=== PATIENT | female | born 1945 | race Caucasian/White ===

== ENCOUNTER 2018-11-13 08:38 | Inpatient (IN) | payer OTHER ==
[2018-11-01 09:21] LABS: HEMATOCRIT 41.3 % (37.0-47.0); HEMOGLOBIN 13.7 gm/dL (12.0-15.0); MCH 29.9 pg (26.0-34.0); MCHC 33.1 g/dL (28.0-37.0); MCV 90.4 fL (80.0-100.0); RBC 4.57 mil/uL (4.20-5.00); RDW 13.6 % (10.5-14.5); WBC 5.8 thou/uL (4.0-11.0)
[2018-11-01 09:22] LABS: URINE BILIRUBIN NEGATIVE (Negative); URINE BLOOD NEGATIVE (Negative); URINE CLARITY CLEAR; URINE COLOR YELLOW; URINE GLUCOSE-RANDOM* NEGATIVE (Negative); URINE KETONES NEGATIVE (Negative); URINE LEUKOCYTES-REFLEX NEGATIVE (Negative); URINE NITRITE-REFLEX NEGATIVE (Negative); URINE PROTEIN (DIPSTICK) NEGATIVE (Negative); URINE UROBILINOGEN 0.2 E.U./dl (0.2-1.0)
[2018-11-01 09:28] LABS: ALBUMIN 4.1 g/dL (3.4-5.0); CALCIUM 10.6 mg/dL (8.5-10.1); CREATININE 0.9 mg/dL (0.6-1.0); POTASSIUM 4.7 mmol/L (3.5-5.1)
--- NOTE | 2018-11-01 16:31 | EKG ---
[address] [address] ELECTROCARDIOGRAM REPORT Name: JOSE ELLISON Room #: [facility]#: [id number] Admission: Attend Phys: Dieudonne Wolfe MD Discharge: Date of : 49 Report #: [id number] THIS REPORT FOR: //name// [facility] Test Date: 2018-11-01 Test Time: 09:19:31 Pat Name: JOSE ELLISON Department: Room: Gender: F Global Sales Manager: christian : 1945 Requested By: Dieudonne Wolfe Order Number: [id number] MD: Figueroa Hathaway Measurements Intervals Kennedy Rate: 77 P: 71 MN: 167 QRS: -7 QRSD: 99 T: 33 QT: 378 QTc: 428 Interpretive Statements Sinus rhythm Baseline wander in lead(s) I,II,aVR,V4 No previous ECG available for comparison Electronically Signed On 11-01-2018 16:31:31 CDT by Figueroa Hathaway [email or web address] <ELECTRONICALLY SIGNED> By: Figueroa Hathaway MD 11/01/18 1631 8 8 Figueroa Hathaway MD /ROMAINE
[~2018-11-13] VITALS: Ht 165.1 cm; Wt 87.1 kg
[2018-11-13 00:15] VITALS: BP 135/69
[~2018-11-13 08:38] MED LIST: GABAPENTIN 100100 MG PO; MOBIC15 MG PO; PRAVACHOL40 MG PO; PRINIVIL20 M1 PO; TYLENOL PM EX-1 EACH PO; UNICOMPLEX M TA1 TA1 PO
[2018-11-13 11:59] VITALS: BP 151/85
[2018-11-13 19:35] VITALS: BP 135/69
[2018-11-13 20:00] VITALS: BP 133/60
[2018-11-13 20:15] VITALS: BP 133/60
[2018-11-14] VITALS (8 sets, daily range): BP systolic 96–121; BP diastolic 53–62
--- NOTE | 2018-11-14 04:04 | NUR ---
patient aox4 makes needs known. patient has a dressing on right knee, dressing c/d/i. patient has a polar care on. patient has a linda dressing is intact. pain controlled this shift. patient has alida hose and scd on. patient uses a bed side commode. patient in bed asleep at this time breathing regular and unlaboured.
[2018-11-14 05:37] LABS: HEMATOCRIT 37.2 % (37.0-47.0); HEMOGLOBIN 12.2 gm/dL (12.0-15.0); MCHC 32.7 g/dL (28.0-37.0); MCV 91.8 fL (80.0-100.0); RBC 4.05 mil/uL (4.20-5.00); RDW 13.4 % (10.5-14.5); WBC 9.2 thou/uL (4.0-11.0)
--- NOTE | 2018-11-14 14:29 | NUR ---
Cashier Or Checker Stock Clerk faxed referral to [facility], the patient should be ready to discharge on . Dp let [facility]Graciela know.
--- NOTE | 2018-11-14 17:38 | NUR ---
PT A&OX, VSS, PAIN IN RIGHT KNEE. PATIENT ABLE TO BEAR WEIGHT AND PIVOT TO BEDSIDE COMMODE. PAIN MANAGED WITH MEDICATION. PATIENT TOLERATED PHYSICAL THERAPY TODAY. PATIENT DID HAVE NAUSEA THIS MORNING APPROX 0730, ZOFRAN GIVEN AND SUCCESSFUL. NO COMPLAINTS OF NAUSEA AT THIS TIME. CHARLI DRESSING C/D/I. LIBRADO MATIAS, SCDS, AND POLAR PACK IN PLACE. RIGHT LEG WARM TO TOUCH, COLOR APPROPRIATE, SENSATION FELT. WILL CONTINUE TO MONITOR.
--- NOTE | 2018-11-15 01:52 | NUR ---
PATIENT AOX4 MAKES NEEDS KNOWN.PATIENT IS ABLE TO PIVOT FROM THE BED TO THE COMMODE WITH NO PAIN. NEURO CHECKS DONE EVERY 4 HOURS. PAIN CONTROLLED THIS SHIFT. SCD ON BLE. CHARLI DRESSING ON RIGHT KNEE IS C/D/I. ROSALVA WRAP ON RIGHT KNEE IS C/D/I. POLAR PACK ON RIGHT KNEE IS ON AND WORKING. FALL PRECAUTION IN PLACE. PATIENT IN BED ASLEEP AT THIS TIME BREATHING REGULAR AND UNLABOURED.
[2018-11-15 06:17] LABS: HEMATOCRIT 36.5 % (37.0-47.0); HEMOGLOBIN 11.8 gm/dL (12.0-15.0); MCH 29.7 pg (26.0-34.0); MCHC 32.4 g/dL (28.0-37.0); MCV 91.6 fL (80.0-100.0); RBC 3.99 mil/uL (4.20-5.00); RDW 13.9 % (10.5-14.5); WBC 6.6 thou/uL (4.0-11.0)
[2018-11-15 07:40] VITALS: BP 126/66
--- NOTE | 2018-11-15 10:07 | PATH ---
[facility] [address] [address] PATHOLOGY RPT PROCEDURE Name: JOSE ELLISON Room #: 455-P ADM IN M.R.#: [id number] Admission: 11/13/18 Date of : 49 Discharge: Report #: [id number] Path Case #: [id number] [facility] Accession Number: [id number] . 01 Material submitted: . knee - RIGHT KNEE TISSUE, FS. Modifiers: right . 02 Frozen section diagnosis: . FROZEN SECTION DIAGNOSIS (Anila Cooney MD) . FSA1, Synovium, right knee tissue, biopsy: - Reactive and reparative changes. - No increase in acute inflammation (none greater than 5/hpf). . These findings are discussed with Dr. Dieudonne Wolfe in OR-5 at [facility] and a written report is placed in the patient's chart. . Frozen section performed at [facility], [address] [place] [address]. . . GROSS DESCRIPTION: Specimen is received fresh from the OR labeled with the patient's name, "right knee tissue", consists of soft to firm fragments of tissue measuring an aggregate of 3 x 2 x 1 cm. Press Operator Carbon Blocks portions of the shiny smooth surface are submitted for frozen section as FSA1, the frozen section remnant is submitted for permanent sections as A1. The unfrozen portion of the tissue is submitted in entirety in A2 and A3. (IUV:odilon; 11/13/2018) IZV/MBR . 02 Diagnosis: Synovium, right knee tissue, biopsy: - Foreign body-type polarizable material associated with giant cell reaction as well as reparative changes. - Negative for increase in acute inflammation/neutrophils per high power field. (IUV:component design engineer; 11/14/2018) MBR 11/14/2018 1340 Local . 02 Electronically signed: . Anila Cooney MD, Pathologist NPI- [id number] . 03 Gross description: . PLEASE SEE FROZEN SECTION GROSS DESCRIPTION. [address] [place] [address] PATHOLOGY RPT PROCEDURE Name: JOSE ELLISON Room #: 455-P ADM IN M.R.#: [id number] Admission: 11/13/18 Date of : 49 Discharge: Report #: [id number] Path Case #: [id number] . /MBR 11/14/2018 0908 Local . 02 Pathologist provided ICD-10: Z03.89 . 02 CPT . 021766, [id number] Specimen Comment: A courtesy copy of this report has been sent to Specimen Comment: [phone], . Specimen Comment: Report sent to / DR GUTIERREZ Specimen Comment: Report sent to Performed at: [address] [place] [id number] MD Mark Osorio MD Phone: [phone] Performed at: [address] [id number] MD Anila Cooney MD Phone: [phone] Performed at: [address] [facility], [place], [place] [id number] MD Mark Osorio MD Phone: [phone]
[2018-11-15] MEDS ORDERED: ASPIR 8181 MG PO (13:16)
[2018-11-15] MEDS ORDERED: NEURONTIN 300300 M1 PO (13:16)
--- NOTE | 2018-11-15 13:36 | O ---
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 PROCEDURE: Revision of right total knee arthroplasty, all components. SURGEON: Dieudonne Wolfe MD. ATTORNEY: Kia Ramirez PA-C. ANESTHESIA: LMA with an adductor canal block. IMPLANTS: [employer]hew size 5 LEGION revision Oxinium femoral component with a size 6-mm offset fire dispatcher and a 13 x 160 stem, a size 3 LEGION revision tibial baseplate with 5 mm medial and lateral abilio wedges, a 4-mm offset fire dispatcher and a 13 x 160 stem, a size 32 patella and a size 15 constrained polyethylene liner. TOURNIQUET TIME: 100 minutes. ESTIMATED BLOOD LOSS: 50 mL. INDICATIONS FOR ASSISTANCE: Throughout the case, extensive retraction and manipulation of the knee was required. This was afforded to me by my inventory assistant. CONDITION UPON LEAVING THE OPERATING ROOM: Stable. INDICATIONS FOR PROCEDURE: The patient is a 72-year-old female who has had a right total knee arthroplasty about 13 years ago. She has had increasing pain in her knee and signs of polyethylene wear on her x-ray. She had a bone scan shown to have increased uptake around her tibial component. It was felt that she had polyethylene wear secondary to aseptic loosening of her right total knee arthroplasty. After discussion with her, she elected for a revision right total knee arthroplasty. [address] [address] OPERATIVE REPORT Name: JOSE ELLISON Room #: 455-P [facility] IN ..#: [id number] Admission: 11/13/18 Attend Phys: Dieudonne Wolfe MD Discharge: Date of : 49 Report #: [id number] DESCRIPTION OF PROCEDURE: Risks, benefits, alternatives, complications were discussed in detail with the patient, including but not limited to risk of anesthesia, risk of damage to nerves, arteries, blood vessels, risk for infection, bleeding, risk for continued knee pain, need for reoperation. Informed consent was obtained from the patient. The right knee was appropriately marked in the preoperative holding area. IV Ancef was given for preoperative antibiotics. She was brought to the operating room and placed in supine position on operating room table. LMA anesthesia was induced without complication. Tourniquet was placed on the right thigh. Right lower extremity was prepped and draped in normal sterile fashion. Timeout was performed properly identifying the patient and procedure as well as the instrumentation, and all in the operating room were in agreement. Previous scar was used and this was opened with a 10 blade through the skin. Dissection was taken down sharply to the fascia. Deep flaps were developed medially and laterally. A fresh 10 blade was used to make a medial parapatellar arthrotomy and cultures of the synovial fluid were taken and sent. Several areas of the capsule was excised sharply and sent for intraoperative frozen section and showed no acute inflammation per high-power field. The polyethylene liner was then removed and the knee was flexed. The patella was subluxed laterally and the femoral component was then removed with dissection of the bone cement interface using osteotomes. After removal of the femoral component, attention was turned to the tibial component and straight osteotomes were used to remove this. We then used a Slap hammer to remove the tibial component completely. The remainder of the cement was removed from the tibia and the femur. There were areas of osteolysis around the surrounding femur and tibia. The femur and tibia were then sequentially reamed up to a size 13, at which point the reamer was stable. Tibial resection cleanup cut guide was then pinned in place and a cleanup cut was made. The tibia was then sized and was found to be a size 3 with a 4-mm offset fire dispatcher. Tibial trial was then built on the back table. Flexion and extension gap seemed rather large, and so, 5-mm wedge build-ups were placed on the tibial component. The tibial trial was placed. Attention was then turned to the femur, and distal femoral cleanup cut was then made and the femur was sized, found to be a size 5. This fit best with a 6-mm offset fire dispatcher in the 6 o'clock position. The femoral cutting block was pinned in place, and the anterior, posterior and chamfer cuts were made. Femoral trial component was then placed. Box cut was made. This was then trialed with multiple polyethylenes up to a size 15, constrained, at which point the size 15 constrained polyethylene had the best fit. The previous patellar resurfacing button was then removed with an oscillating saw, and the patellar bone was freshened up with a saw. This was then sized and found to be a size 32. A size 32 patellar trial was placed. The knee was then taken through range of motion, found to be stable, medially and laterally in flexion and extension with good patellar tracking. Trial components were removed. The final components were built on the back table to match the trial component, and the final components were cemented into place using standard cementation techniques. While the cement cured, a periarticular injection consisting of morphine, ropivacaine, [facility] [address] [place] [address] OPERATIVE REPORT Name: JOSE ELLISON Room #: 455-P [facility] IN ..#: [id number] Admission: 11/13/18 Attend Phys: Dieudonne Wolfe MD Discharge: Date of : 49 Report #: [id number] epinephrine and Toradol was placed around the knee joint capsule. After the cement cured, tourniquet was deflated. Hemostasis was obtained with Bovie cautery. Final size 15 highly constrained polyethylene was placed. A gram of vancomycin was placed deep in the joint. Fascia was closed with 0 Vicryl, skin was closed with 2-0 Vicryl, skin karla and a CHARLI dressing was applied. The patient tolerated this procedure well and went to recovery room under care of anesthesia postoperatively. <ELECTRONICALLY SIGNED> By: Dieudonne Wolfe MD 11/15/18 1336 [id number] Dieudonne Wolfe MD /nt
[2018-11-15 14:05] VITALS: BP 132/76
--- NOTE | 2018-11-15 14:38 | NUR ---
PT ADMITTED RELATED TO RIGHT TOTAL KNEE REVISION. CM REVIEWED CHART AND SPOKE WITH CARE TEAM. CM MET WITH PT AT BEDSIDE YESTERDAY. PT IS A&O x4. CM ROLE INTRODCUED. PT INDICATED SHE LIVES IN A HOUSE WITH HER SPOSUE WITH 1 TO ENTER AND NO STEPS SHE WILL USE INSIDE. PT INDICATED SHE SET THINGS UP SO SHE WILL HAVE ALL NEEDS ONE LEVEL. SHE INDICATED SHE HAS A FWW, CRUTCHES, AND SHOE HORN. PT INDICATED SHE WANTS TO GO TO [facility]. REFERRAL WAS SENT THEY ARE ABLE TO ACCEPT AND DC IS ANTICPATED FOR TUESDAY. PT IS AWARE AND AGREEABLE. CM TO FOLLOW INDICATED WITH DC PLANNING.
--- NOTE | 2018-11-15 17:19 | NUR ---
ASSUMED CARE AT 0700, SHIFT ASSESSMENT DONE, MEDS GIVEN, VSS. REPORTED PAIN, PRN PAIN MEDS GIVEN PER eMAR. DENIES NAUSEA, VOMITING. WORKED WITH PHYSICAL THERAPHY. POSSIBLE DISCHARGE TOMORROW. TOOK A SHOWER TODAY. WILL CONTINUE TO ASSESS AND ASSIST WITH ADLs NEEDED.
[2018-11-15 20:09] VITALS: BP 113/67
[2018-11-16 06:05] LABS: HEMATOCRIT 34.3 % (37.0-47.0); HEMOGLOBIN 11.2 gm/dL (12.0-15.0); MCH 29.8 pg (26.0-34.0); MCHC 32.7 g/dL (28.0-37.0); MCV 91.1 fL (80.0-100.0); RBC 3.77 mil/uL (4.20-5.00); RDW 13.4 % (10.5-14.5); WBC 6.1 thou/uL (4.0-11.0)
--- NOTE | 2018-11-16 06:14 | NUR ---
Pt. rested quietly at intervals during the night when checked on during frequent rounds. She has been medicated for c/o right knee pain and generalized pain (see emar). Assisted up to the bedside comode with one assist. Picco dressing to right knee is intact. Polar pack in place. Bed alarm is on.
[2018-11-16 08:06] VITALS: BP 117/64
[2018-11-16 09:00] VITALS: BP 117/64
[2018-11-16 09:14] VITALS: BP 117/64
--- NOTE | 2018-11-16 14:02 | NUR ---
DISCHARGE ORDERS COMPLETED. PATIENT DISCHARGING TO [facility]. DISCHARGE ORDERS AND DISCHARGE SUMMARY FAXED TO [facility], VERIFIED ORDERS RECEIVED. [facility] TO TRANSPORT PATIENT TO FACILITY, 1500 HOURS. CALL PLACED TO [facility] TO NOTIFY, VOICE MAIL LEFT FOR HIM WITH CM CONTACT INFORMATION. UNIT NOTIFIED AND CHART COPY COMPLETED PER WAREHOUSE PRODUCTION WORKER. UNIT SW AWARE.
--- NOTE | 2018-11-16 14:29 | NUR ---
PT HAD BEEN ACCEPTED FOR ADMISSION AT [facility] THIS DAY. CHART COPY ORDERED. ORDERS FAXED. WHEELCHAIR VAN TRASNPORT ATTANGED FOR 1500. REPORT TO BE CALLED TO . PT TO NOTIFY FAMILY. NO OTHER CM INTERVENTION INDICATED. CASE CLOSED.
--- NOTE | 2018-11-16 15:16 | NUR ---
PT A&OX4, VSS, PAIN IN RIGHT KNEE. MEDICATION GIVEN FOR PAIN. CHARLI DRESSING REMAINS C/D/I. PATIENT HAS EDEMA LEFT KNEE, SKIN APPROPRIATE COLOR, SENSATION FELT, ABLE TO BEAR WEIGHT AND WALK TO BEDSIDE COMMODE, CAP REFILLS <3. IV REMOVED, ALL BELONGINGS WITH PATIENT. PATIENT DENIES NAUSEA TODAY. NO SIGNS OF DISTRESS. PATIENT DISCHARGED TO FACILITY FOR REHAB. LIBRADO HOSE ARE INTACT, POLOR PACK WITH PATIENT.
== END 2018-11-16 15:33 | DRG 468 ==
LOC: PRE → TBA 11:12 → 4W 11:12 → PRE 12:54 → 4W 20:05
PROVIDERS: ADMIT Orthopaedic Surgery
DX: T84.032A Mechanical loosening of internal right knee prosthetic joint, initial encounter (principal); Z88.0 Allergy status to penicillin; Z88.2 Allergy status to sulfonamides; Z88.8 Allergy status to other drugs, medicaments and biological substances; Z91.040 Latex allergy status; Z79.899 Other long term (current) drug therapy; Y83.8 Other surgical procedures as the cause of abnormal reaction of the patient, or of later complication, without mention of misadventure at the time of the procedure; Y92.89 Other specified places as the place of occurrence of the external cause
CPT/HCPCS: 10047; 50010; 50101; 50415; 50954; 51130; 51225; 51320; 51412; 52001; 52282; 53000; 53078; 55389; 56527; 56528; 56805; 57095; 57103; 57104; 57110; 57180; 62110; 62900; 64042; 70005